=== PATIENT | male | born 1985 | race Caucasian/White ===

== ENCOUNTER 2017-06-04 17:27 | Emergency (ER) | payer OTHER ==
[2017-06-04 17:41] VITALS: BP 139/80; PULSE 84; TEMP 98; BMI 25.0
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
[2017-06-04 18:24] LABS: BASO % 0.3 % (0-2.0); EOS % 1.9 % (0-4.5); HEMATOCRIT 39.8 % (35.4-49); HEMOGLOBIN 14.2 GM/dL (11.7-16.9); LYMPH % 13.3 % (8-40); MCH 31.2 pg (25.7-33.7); MCHC 35.7 g/dl (32.0-35.9); MEAN CELL VOLUME 87.3 fl (80-96); MEAN PLT VOLUME 8.7 fl (7.5-11.1); MONO % 4.5 % (3.8-10.2); PLATELET COUNT 168 K/MM3 (134-434); RBC 4.56 M/mm3 (4.00-5.60); RDW 12.8 % (11.9-15.9); WHITE BLOOD COUNT 9.1 K/mm3 (4.0-10.0)
[2017-06-04 19:04] LABS: ARTERIAL BLD GAS O2 SATURATION 97.5 % (90-98.9); ARTERIAL BLOOD GAS BASE EXCESS 0.9 meq/l (-2-2); ARTERIAL BLOOD GAS PCO2 40.9 mmHg (35-45); ARTERIAL BLOOD GAS PO2 96.8 mmHg (80-100); ARTERIAL BLOOD GAS pH 7.41 (7.35-7.45); CARBOXYHEMOGLOBIN 1.3 gm% (0.5-2.0)
[2017-06-04 19:05] LABS: ALLENS TEST POSITIVE
[2017-06-04 19:08] LABS: ALBUMIN 4.7 g/dl (3.4-5.0); ANION GAP 6 (8-16); BLOOD UREA NITROGEN 20 mg/dL (7-18); CALCIUM 8.9 mg/dL (8.5-10.1); CHLORIDE 104 mmol/L (98-107); CO2 29 mmol/L (21-32); CREATININE 1.3 mg/dL (0.7-1.3); GLUCOSE,RANDOM 88 mg/dL (74-106); SGOT/AST 18 U/L (15-37); SGPT/ALT 33 U/L (12-78); SODIUM 139 mmol/L (136-145)
[2017-06-04 19:11] LABS: ALK PHOS 71 U/L (45-117); BILIRUBIN,TOTAL 0.2 mg/dL (0.2-1.0); TOT PROT 7.4 g/dl (6.4-8.2)
[2017-06-04] MEDS ORDERED: ALBUTEROL SO4 18 GM HFA INHALER IH ONE (19:34)
--- NOTE | 2017-06-06 11:38 | EKG ---
Test Reason : Blood Pressure : / mmHG Vent. Rate : 076 BPM Atrial Rate : 076 BPM P-R Int : 178 ms QRS Dur : 106 ms QT Int : 366 ms P-R-T Axes : 065 067 050 degrees QTc Int : 411 ms NORMAL SINUS RHYTHM NORMAL ECG WHEN COMPARED WITH ECG OF 04-SEP-2014 09:51, NO SIGNIFICANT CHANGE WAS FOUND Confirmed by ZENON CARRERA MD ([id number]) on 06/06/2017 11:38:14 AM Referred By: Confirmed By:ZENNO CARRERA MD
== END 2017-06-04 19:56 | disposition home or self-care (01) ==
LOC: JER 17:27
PROC: 3E0F7GC Introduction of Other Therapeutic Substance into Respiratory Tract, Via Natural or Artificial Opening (ICD-10-PCS; principal; 2017-06-04)
DX: T59.811A Toxic effect of smoke, accidental (unintentional), initial encounter (principal); J70.5 Respiratory conditions due to smoke inhalation; X08.8XXA Exposure to other specified smoke, fire and flames, initial encounter; Y93.89 Activity, other specified; Y92.89 Other specified places as the place of occurrence of the external cause; Y99.2 Volunteer activity
CPT/HCPCS: 36415; 36600; 71046-TC-FY; 80053; 82375; 82803; 83050; 84484; 85025; 93005; 93010; 99283-25

== ENCOUNTER 2022-08-21 03:44 | Emergency (ER) | payer OTHER ==
[2022-08-21 04:04] VITALS: BP 116/69; PULSE 75; RESP 18; TEMP 98.1; BMI 25.6
[2022-08-21] MEDS ORDERED: SODIUM CHLORIDE 500 ML IV STA (05:10)
== END 2022-08-21 05:58 | disposition home or self-care (01) ==
LOC: JER 03:44
DX: T59.811A Toxic effect of smoke, accidental (unintentional), initial encounter (principal); J70.5 Respiratory conditions due to smoke inhalation; R42 Dizziness and giddiness; E86.0 Dehydration; X01.1XXA Exposure to smoke in uncontrolled fire, not in building or structure, initial encounter; Y93.9 Activity, unspecified; Y92.038 Other place in apartment as the place of occurrence of the external cause
CPT/HCPCS: 82375; 99284-25

== ENCOUNTER 2023-08-18 18:13 | Emergency (ER) | payer OTHER ==
[2023-08-18 18:31] VITALS: BP 123/73; PULSE 82; RESP 18; BMI 34.3
[2023-08-18] MEDS: SODIUM CHLORIDE 1,000 ML IV STA (19:24)
[2023-08-18 19:38] LABS: BASO % 0.3 % (0-2.0); EOS % 4.5 % (0-4.5); HEMATOCRIT 36.5 % (35.4-49); HEMOGLOBIN 12.9 GM/dL (11.7-16.9); MCH 30.3 pg (25.7-33.7); MCHC 35.4 g/dl (32.0-35.9); MEAN CELL VOLUME 85.3 fl (80-96); MONO % 8.3 % (3.8-10.2); NEUT % 66.9 % (42.8-82.8); PLATELET COUNT 138 10^3/uL (134-434); RBC 4.28 M/mm3 (4.00-5.60); RDW 12.3 % (11.9-15.9); WHITE BLOOD COUNT 5.6 K/mm3 (4.0-10.0)
[2023-08-18] MEDS ORDERED: ACETAMINOPHEN INJECTION 100 ML IVPB ONE (20:04)
[2023-08-18 20:06] LABS: BLOOD UREA NITROGEN 17.5 mg/dL (7-18)
[2023-08-18 20:07] LABS: ALBUMIN 4.4 g/dl (3.4-5.0)
[2023-08-18] MEDS: ACETAMINOPHEN 1000 MG/100 ML BAG IVPB ONE (20:09)
[2023-08-18 20:10] LABS: CREATININE 1.2 mg/dL (0.55-1.3)
[2023-08-18 20:11] LABS: BILIRUBIN,TOTAL 0.6 mg/dL (0.2-1); TOT PROT 6.8 g/dl (6.4-8.2)
[2023-08-18 21:16] LABS: ARTERIAL BLD GAS O2 SATURATION 52.4 % (95-98); ARTERIAL BLOOD GAS BASE EXCESS -2.8 mmol/L (-2-2); ARTERIAL BLOOD GAS pH 7.336 (7.350-7.450)
[2023-08-18 21:18] LABS: ARTERIAL BLOOD GAS PO2 29.7 mmHg (80-100)
== END 2023-08-18 22:06 | disposition home or self-care (01) ==
LOC: JER 18:13
PROC: 3E033NZ Introduction of Analgesics, Hypnotics, Sedatives into Peripheral Vein, Percutaneous Approach (ICD-10-PCS; principal; 2023-08-18)
PROC: 3E0337Z Introduction of Electrolytic and Water Balance Substance into Peripheral Vein, Percutaneous Approach (ICD-10-PCS; 2023-08-18)
DX: T67.5XXA Heat exhaustion, unspecified, initial encounter (principal); S39.012A Strain of muscle, fascia and tendon of lower back, initial encounter; R21 Rash and other nonspecific skin eruption; R53.1 Weakness; X08.8XXA Exposure to other specified smoke, fire and flames, initial encounter; Z20.822 Contact with and (suspected) exposure to COVID-19
CPT/HCPCS: 0241U-QW; 36415; 36600; 80053; 82375; 82550; 82553; 82803; 85025; 99284-25; J0131